=== PATIENT | female | born 1990 | race American Indian/Alaskan Native ===

== ENCOUNTER 2019-09-26 05:45 | Day surgery (SDC) | payer MEDICAID ==
[2019-09-26] MEDS ORDERED: MIDAZOLAM 2 MG/2 ML INJ IV NR (06:00)
[2019-09-26] MEDS ORDERED: LACTATED RINGERS 1,000 ML IV SCH (06:00)
[2019-09-26] MEDS ORDERED: SCOPOLAMINE TRANSDERMAL PATCH 72 HR TD NR (06:00)
[2019-09-26] MEDS ORDERED: BACTERIOSTATIC SODIUM CHLORIDE 0.9% 30 ML VIAL INFILTRATI ONE (06:41)
[2019-09-26] MEDS ORDERED: HYDROmorphone 1 MG/1 ML INJ IV PRN (07:04)
[2019-09-26] MEDS ORDERED: ONDANSETRON 4 MG/2 ML INJ IV PRN (07:04)
--- NOTE | 2019-09-26 07:04 | Anesthesia Consultation ---
Anesthesia Consult and Med Hx Date of service: 09/26/19 - Airway Anesthetic Teeth Evaluation: Good ROM Head & Neck: Adequate Mental/Hyoid Distance: Adequate Mallampati Class: Class III Intubation Access Assessment: Possibly Difficult - Pulmonary Exam CTA: Yes - Cardiac Exam Cardiac Exam: RRR - Pre-Operative Health Status ASA Pre-Surgery Classification: ASA1 Proposed Anesthetic Plan: General - Pulmonary Hx Smoking: No Hx Respiratory Symptoms: No - Cardiovascular System Hx Hypertension: No Hx Heart Attack/AMI: No Hx Percutaneous Transluminal Coronary Angioplasty (PTCA): No - Central Nervous System CVA: No - Gastrointestinal Hx Gastroesophageal Reflux Disease: Yes (asymptomatic today) - Endocrine Hx Renal Disease: No Hx Liver Disease: No Hx Insulin Dependent Diabetes: No Hx Non-Insulin Dependent Diabetes: No Hx Thyroid Disease: No - Other Systems Hx Obesity: Yes (BMI 32) - Additional Comments Anesthesia Medical History Comments: No hx anesthetic complications.
--- NOTE | 2019-09-26 07:04 | Anesthesia Day of Surgery ---
Anesthesia Day of Surgery - Day of Surgery Patient Examined: Yes Patient H&P Reviewed: Yes Patient is NPO: Yes
--- NOTE | 2019-09-26 07:15 | Short Stay Summary ---
Short Stay Documentation Date of service: 09/26/19 Narrative H&P: 29-year-old female who presents with a complaint of labial enlargement. She complains of discomfort with wearing tight close and also pain with intercourse secondary to the size of her labia. She is requested surgical reduction of the tissue. The patient has been counseled on the risk and benefits of the procedure. - History Principal diagnosis: Labial hypertrophy Past Medical History: No medical history Past Surgical History: No surgical history Social history: single - Allergies and Medications Current Medications: Allergies No Known Allergies Allergy (Unverified 09/20/19 16:13) Home Medications Medication Instructions Recorded Confirmed Last Taken Type Doxycycline Hyclate 50 mg PO BID 09/20/19 09/20/19 Unknown History Active Medications Hydromorphone HCl (Dilaudid) 0.5 mg IV Q10MIN PRN PRN Reason: Pain , Severe (7-10) Stop: 09/26/19 22:00 Lactated Ringer's (Lactated Ringers) 1,000 mls @ 100 mls/hr IV DIRECT DIANNE Stop: 09/26/19 23:59 Midazolam HCl (Versed) 2 mg IV PREOP NR Stop: 09/26/19 23:59 Ondansetron HCl (Zofran) 4 mg IV ONCE PRN PRN Reason: Nausea And Vomiting Stop: 09/26/19 18:00 Scopolamine (Transderm-Scop) 1 each TD PREOP NR Stop: 09/26/19 23:59 - Physical exam General appearance: no acute distress Integumentary: no rash HEENT: Atraumatic Lungs: Clear to auscultation Breasts: deferred Heart: Regular rate Gastrointestinal: normal Female Genitourinary: deferred Rectal Exam: deferred - Brief post op/procedure progress note Date of procedure: 09/26/19 Pre-op diagnosis: Labial hypertrophy Post-op diagnosis: same Procedure: labialplasty Anesthesia: GETA Surgeon: MADAY LUCAS Estimated blood loss: 50-100ml Pathology: list (labia majora) Specimen disposition: to lab Condition: stable - Hospital course Hospital course: Patient admitted for reduction of her labia. See op note. Postoperative course uncomplicated - Disposition Condition at discharge: Good Disposition: [id number] TO HOME OR SELFCARE - Discharge Diagnoses (1) Labial hypertrophy Status: Acute Short Stay Discharge Plan Activity: other (pelvic rest for 4 weeks) Diet: regular Additional Instructions: schedule followup in [address] Mittal Prescriptions: Ibuprofen [Motrin] 800 mg PO Q8HR PRN #30 tablet PRN Reason: Pain , Severe (7-10) HYDROcodone/APAP 5-325 [[place] 5/325] 1 each PO Q6HR PRN #20 tablet PRN Reason: Pain
[2019-09-26] MEDS ORDERED: propofoL 200 MG/20 ML VIAL IV ONE (07:35)
[2019-09-26] MEDS ORDERED: HYDROmorphone 1 MG/1 ML INJ ONE (07:35)
[2019-09-26] MEDS ORDERED: LIDOCAINE MPF (2%) 20 MG/1 ML VIAL 5 ML ONE (07:35)
[2019-09-26] MEDS ORDERED: LIDOCAINE 1%/EPINEPHRINE 1:100,000 VIAL (20 ML) INFILTRATI ONE ×2 (07:58→08:07)
[2019-09-26] MEDS ORDERED: ceFAZolin/Water 2 GM/20 ML 2 GM/20 ML SYRINGE IV NR (08:00)
[2019-09-26] MEDS ORDERED: ONDANSETRON 4 MG/2 ML INJ ONE (08:03)
[2019-09-26] MEDS ORDERED: KETOROLAC 30 MG/1 ML INJ ONE (08:03)
[2019-09-26] MEDS ORDERED: SODIUM CHLORIDE 0.9% IRR 1,500 ML BOTTLE IR ONE (08:07)
--- NOTE | 2019-09-26 08:58 | Operative Report ---
Operative Report Operative Report: Date of procedure: September 26, 2019 Pre-operative diagnosis: Labial hypertrophy Post-operative diagnosis: Same as above Procedure name(s): Labioplasty Surgeon: Meeta Breen M.D. Gas Analyst: None Estimated blood loss: 50 mL Anesthesia: General endotracheal anesthesia Findings Enlarged labia majora bilaterally Indication: 29-year-old female with a history of labial hypertrophy. The patient reports pain with intercourse and also discomfort with tight clothing. Procedure The patient was taken to the operating room and given general endotracheal anesthesia without complication. She is prepped and draped in normal sterile fashion. A timeout was performed that confirmed the patient's and the procedure to be performed. The patient was placed in high lithotomy position. Lidocaine with epinephrine was injected into the labia majora. The labia was grasped with pickups. #15 scalpel was used to excise the excess tissue. This was performed on the contralateral side as well. The skin edges were reapproximated with 3-0 Vicryl in a running fashion. The site was hemostatic at the conclusion of the case. The tissue was sent to pathology.
[2019-09-26 09:25] VITALS: BP 135/87
--- NOTE | 2019-09-26 14:48 | Post Anesthesia Evaluation ---
- Post Anesthesia Evaluation Patient Participated: Yes Airway Patent: Yes Stable Respiratory Function: Yes Nausea/Vomiting: No Temp > 96.8F: Yes Pain Manageable: Yes Adequeate Hydration: Yes Anesthesia Complications: No
== END 2019-09-26 10:05 | disposition home or self-care (01) ==
LOC: OR 05:45
PROVIDERS: ATTEND Obstetrics & Gynecology
DX: N90.69 Other specified hypertrophy of vulva (principal); K21.9 Gastro-esophageal reflux disease without esophagitis; E66.9 Obesity, unspecified; Z72.89 Other problems related to lifestyle; Z98.890 Other specified postprocedural states; Z79.899 Other long term (current) drug therapy; Z68.32 Body mass index [BMI] 32.0-32.9, adult; Z86.2 Personal history of diseases of the blood and blood-forming organs and certain disorders involving the immune mechanism
CPT/HCPCS: 56620; 81025; 88302; J0690; J1170; J1885; J2250; J2405; J2704; J7120; 88305